=== PATIENT | female | born 1950 | race African-American/Black ===

== ENCOUNTER 2020-07-02 09:10 | Emergency (ER) | payer OTHER ==
[~2020-07-02 09:10] MED LIST: ALDACTONE25 MG PO; ASCORBIC ACID500 MG PO; ASPIRIN EC81 MG PO; COZAAR100 MG PO; CYCLOBENZAPRINE10 MG PO; HCTZ25 MG PO; HYDRALAZINE25 MG PO; KLOR-CON M 1010 MEQ PO; MELOXICAM15 MG PO; NASACORT16.9 ML; PROTONIX 40MG T40 MG PO; TOPROL XL 50 MG50 MG PO; VENTOLIN HFA IN18 GM INH; VITAMIN B-121000 MC1 PO; VITAMIN D PO; ZOLOFT50 MG PO
[2020-07-02 09:46] LABS: BASOPHIL 0.3 % (0-2); EOSINOPHIL 3.3 % (0-7); HCT 41.6 % (37.0-47.0); HGB 12.8 g/dl (12.5-16.0); LYMPHOCYTE 20.8 % (15-48); MCH 25.9 pg (25.0-31.0); MCHC 30.8 g/dL (32.0-36.0); MONOCYTE 7.1 % (0-12); MPV 10.8 fL (6.0-9.5); NRBC 0; PLT 227 K/uL (150-400); RBC 4.95 M/uL (4.20-5.40); RDW 16.1 % (11.5-14.0); WBC 11.7 K/uL (4.0-10.5)
[2020-07-02 09:54] LABS: INR 1.02 (0.9-1.2); PROTHROMBIN TIME 12.7 SECONDS (11.4-13.6); PTT 28.2 SECONDS (22.2-34.7)
[2020-07-02 10:02] LABS: ALBUMIN 3.3 g/dL (3.4-5.0); BILIRUBIN - TOTAL 0.3 mg/dL (0.2-1.0); BUN/CREAT RATIO (CALC) 20.8 RATIO; CREATININE 0.72 mg/dL (0.51-0.95); GLOBULIN (CALCULATION) 4.4 g/dL; POTASSIUM 3.1 mmol/L (3.5-5.1); TOTAL PROTEIN 7.7 g/dL (6.4-8.2)
[2020-07-02 10:10] LABS: CKMB 2.4 ng/mL (0.0-3.6)
[2020-07-02 10:51] LABS: D-DIMER > 20.00 ug/mLFEU (0.00-0.41)
== END 2020-07-02 13:21 | disposition other institution (70) ==
LOC: FER 09:10
PROVIDERS: Emergency Medicine
DX: I71.9 Aortic aneurysm of unspecified site, without rupture (principal); I10 Essential (primary) hypertension; Z88.5 Allergy status to narcotic agent; Z20.822 Contact with and (suspected) exposure to COVID-19
CPT/HCPCS: 36415; 71045; 71275; 72193; 80053; 82553; 83690; 84484; 85025; 85379; 85610; 85730; 93005; J2270; J2405; Q9967; U0002

== ENCOUNTER 2020-08-02 14:11 | Emergency (ER) | payer OTHER ==
[2020-08-02 14:39] LABS: BASOPHIL 0.5 % (0-2); EOSINOPHIL 6.7 % (0-7); HCT 32.8 % (37.0-47.0); HGB 10.5 g/dl (12.5-16.0); LYMPHOCYTE 20.8 % (15-48); MCH 26.2 pg (25.0-31.0); MCV 81.8 fL (78.0-100.0); MONOCYTE 8.8 % (0-12); MPV 10.1 fL (6.0-9.5); NRBC 0; PLT 291 K/uL (150-400); RBC 4.01 M/uL (4.20-5.40); RDW 15.9 % (11.5-14.0); WBC 8.5 K/uL (4.0-10.5)
[2020-08-02 14:49] LABS: INR 1.12 (0.9-1.2); PROTHROMBIN TIME 13.7 SECONDS (11.4-13.6); PTT 37.3 SECONDS (22.2-34.7)
[2020-08-02 15:02] LABS: BILIRUBIN - TOTAL 0.3 mg/dL (0.2-1.0); BUN/CREAT RATIO (CALC) 19.8 RATIO; CREATININE 0.96 mg/dL (0.51-0.95); MAGNESIUM 1.8 mg/dL (1.8-2.4); POTASSIUM 4.5 mmol/L (3.5-5.1)
== END 2020-08-02 16:16 | disposition home or self-care (01) ==
LOC: FER 14:11
PROVIDERS: Emergency Medicine
DX: R20.2 Paresthesia of skin (principal); I10 Essential (primary) hypertension; Z86.69 Personal history of other diseases of the nervous system and sense organs; Z88.5 Allergy status to narcotic agent
CPT/HCPCS: 36415; 70450; 80053; 83735; 84484; 85025; 85610; 85730; 93005